=== PATIENT | male | born 1980 | race American Indian/Alaskan Native ===

== ENCOUNTER 2017-06-02 15:29 | Emergency (ER) | payer SELFPAY ==
[2017-06-02 16:49] LABS: Basophils % (Auto) 0.8 % (0.0-1.8); Eosinophils % (Auto) 0.7 % (0.0-4.3); Hemoglobin 15.1 gm/dl (11.8-15.2); Mean Corpuscular HGB Conc 34 % (32-34); Mean Corpuscular Hemoglobin 33 pg (28-32); Mean Corpuscular Volume 95 fl (84-94); Platelet Count 267 K/mm3 (140-440); Red Blood Count 4.63 M/mm3 (3.65-5.03); Red Cell Distribution Width 13.6 % (13.2-15.2); White Blood Count 7.6 K/mm3 (4.5-11.0)
[2017-06-02 17:04] LABS: Alanine Aminotransferase 16 units/L (7-56); Albumin 4.3 g/dL (3.9-5); Albumin/Globulin Ratio 1.7 %; Alkaline Phosphatase 58 units/L (35-129); Anion Gap 17 mmol/L; Blood Urea Nitrogen 12 mg/dL (9-20); Calcium 9.7 mg/dL (8.4-10.2); Carbon Dioxide 28 mmol/L (22-30); Chloride 97.7 mmol/L (98-107); Glucose 96 mg/dL (75-100); Lipase 19 units/L (13-60); Potassium 4.3 mmol/L (3.6-5.0); Sodium 138 mmol/L (137-145); Total Protein 6.8 g/dL (6.3-8.2)
[2017-06-02 17:57] LABS: Bilirubin,Urine NEG (Negative); Blood,Urine MOD (Negative); Ketones,Urine 20 mg/dL (Negative); Leukocyte Esterase,Urine MOD (Negative); Mucus,Urine 2+ /HPF; Nitrite,Urine NEG (Negative); Urobilinogen,Urine < 2.0 mg/dL (<2.0)
[2017-06-02] MEDS ORDERED: ZOFRAN ONE (18:38)
[2017-06-02] MEDS: ZOFRAN IV ONE (18:42)
[2017-06-02] MEDS ORDERED: ROCEPHIN 2,000 MG in NACL 0.9% 50 ML IV ONE (19:32)
--- NOTE | 2017-06-02 19:32 | Emergency Department Report ---
HPI - General Chief Complaint: Abdominal Pain Time Seen by Provider: 06/02/17 19:15 - HPI HPI: This is a 36-year-old -[place] male, who presents to the ED with abdominal pain, periumbilical 10/10 with nausea, vomiting. Patient states that he has had these symptoms on and off for the past 2 weeks, but seems worse today. Patient stated a history of chronic abdominal issues dating back years but he has not yet seen any outside physician for his symptoms. Patient complains of mild dysuria, mild urinary frequency but no hematuria. ED Past Medical Hx - Past Medical History Previous Medical History?: No - Surgical History Past Surgical History?: No - Family History Family history: hypertension - Social History Smoking Status: Current Every Day Smoker Substance Use Type: None - Medications Home Medications: Home Medications Medication Instructions Recorded Confirmed Last Taken Type Ciprofloxacin HCl [Ciprofloxacin 250 mg PO BID #14 tablet 06/02/17 Unknown Rx TAB] Ketorolac [Toradol] 10 mg PO Q6H PRN #14 tablet 06/02/17 Unknown Rx ED Review of Systems ROS: Stated complaint: STOMACH PAIN Other details as noted in HPI Comment: All other systems reviewed and negative Gastrointestinal: nausea Genitourinary: dysuria, frequency, hematuria Physical Exam - Physical Exam Vital Signs: Vital Signs 06/02/17 06/02/17 06/02/17 16:23 18:35 18:40 Temperature 98.2 F Pulse Rate 70 71 Respiratory 17 13 Rate Blood Pressure 123/81 131/84 Blood Pressure [Left] O2 Sat by Pulse 100 100 100 Oximetry 06/02/17 06/02/17 06/02/17 18:44 18:50 18:56 Temperature Pulse Rate 60 68 Respiratory 18 19 16 Rate Blood Pressure 123/84 Blood Pressure 131/84 [Left] O2 Sat by Pulse 99 98 99 Oximetry 06/02/17 06/02/17 19:00 19:10 Temperature Pulse Rate 93 H 66 Respiratory 17 10 L Rate Blood Pressure 131/92 131/92 Blood Pressure [Left] O2 Sat by Pulse 99 99 Oximetry Physical Exam: Gen. alert and oriented 3 in no distress Head atraumatic normocephalic Eyes PERR LA EOMI Chest regular rate and rhythm normal S1-S2 lungs clear bilaterally Abdomen soft nondistended, mild suprapubic tenderness. Back no point tenderness paravertebral tenderness Neuro no focal deficit. Psych normal mood. ED Course Vital Signs 06/02/17 06/02/17 06/02/17 16:23 18:35 18:40 Temperature 98.2 F Pulse Rate 70 71 Respiratory 17 13 Rate Blood Pressure 123/81 131/84 Blood Pressure [Left] O2 Sat by Pulse 100 100 100 Oximetry 06/02/17 06/02/17 06/02/17 18:44 18:50 18:56 Temperature Pulse Rate 60 68 Respiratory 18 19 16 Rate Blood Pressure 123/84 Blood Pressure 131/84 [Left] O2 Sat by Pulse 99 98 99 Oximetry 06/02/17 06/02/17 19:00 19:10 Temperature Pulse Rate 93 H 66 Respiratory 17 10 L Rate Blood Pressure 131/92 131/92 Blood Pressure [Left] O2 Sat by Pulse 99 99 Oximetry ED Medical Decision Making - Lab Data Result diagrams: 06/02/17 16:29 06/02/17 16:29 Critical care attestation.: If time is entered above; I have spent that time in minutes in the direct care of this critically ill patient, excluding procedure time. ED Disposition Clinical Impression: UTI (urinary tract infection) Disposition: DC-01 TO HOME OR SELFCARE Is pt being admited?: No Does the pt Need Aspirin: No Condition: Stable Prescriptions: Ciprofloxacin HCl [Ciprofloxacin TAB] 250 mg PO BID #14 tablet Ketorolac [Toradol] 10 mg PO Q6H PRN #14 tablet PRN Reason: Pain Referrals: PRIMARY CARE, [Primary Care Provider] - 3-5 Days
[2017-06-02] MEDS: NACL 0.9% 1000 ML 1,000 ML IV ONE (19:40)
[2017-06-02] MEDS: BENTYL IM ONE (19:40)
[2017-06-02] MEDS: MORPHINE IV ONE (19:40)
[2017-06-02] MEDS ORDERED: NACL ONE (20:02)
[2017-06-02] MEDS: ROCEPHIN/NS 2 GM/100 ML 2 GM/100 ML BAG IV ONE (20:36)
--- NOTE | 2017-06-02 21:07 | Cat Scan Report ---
FINAL REPORT EXAM: CT ABDOMEN PELVIS W CON HISTORY: abd pain TECHNIQUE: CT of the abdomen and pelvis with IV contrast. Coronal and sagittal reconstructed imaging provided. PRIORS: None currently available. FINDINGS: ABDOMEN: Dilated intra and extrahepatic biliary ducts. Common bile duct measures 9.5 mm. Distinct lesion or stone is not clearly evident on the CT scan. Dorsal pancreatic duct is also dilated measuring 4 mm. A distinct pancreatic lesion is not clearly evident. There appears to be a prominent duct of [place] measuring 3.6 mm which connects with the common bile duct. The dilated dorsal duct of [place] appears to be the main duct which is dilated approximately 4 mm and empties separately into the duodenum. No CT evidence for pancreatitis. No peripancreatic fluid collection identified. Gallbladder is not distended. No distinct stones are present within the gallbladder. No obvious wall thickening. Liver, stomach, spleen, adrenals, and kidneys are unremarkable. IVC is intact. No abdominal aortic aneurysm or dissection. No periaortic or retroperitoneal mass or adenopathy. [id number] stool is present throughout the colon. No obvious wall thickening or inflammatory changes. Appendix is normal. Terminal ilium is unremarkable. Small bowel loops are unremarkable. No obstructive pattern. No free air. No free fluid. PELVIS: Distended bladder. No obvious wall thickening. No stone. No abnormal enhancing lesions. No pelvic mass or adenopathy. Inguinal regions are unremarkable. Bones: No suspicious osseous lesions on this limited examination of the skeleton. Metastatic disease better evaluated with bone scan. IMPRESSION: Dilated intra and extrahepatic biliary duct. A distinct stone or lesion is not clearly evident on CT scan. Pancreatic divisum with a main dilated pancreatic duct of Santorini and a mildly dilated ventral duct of [place]. Further evaluation with MRCP may be helpful if clinically indicated. No CT evidence for pancreatitis at this time.
[2017-06-02 22:09] VITALS: BP 109/57
== END 2017-06-02 22:10 | disposition home or self-care (01) ==
LOC: ED 15:29
DX: N39.0 Urinary tract infection, site not specified (principal); F17.200 Nicotine dependence, unspecified, uncomplicated
CPT/HCPCS: 36415; 74177; 80053; 81001; 83690; 85025; 96361; 96365; 96372; 96375; 99284; J0500; J0696; J2270; J2405; J7030; Q9967

== ENCOUNTER 2017-06-17 12:15 | Emergency (ER) | payer SELFPAY ==
[2017-06-17 13:54] LABS: Alanine Aminotransferase 9 units/L (7-56); Albumin 4.3 g/dL (3.9-5); Albumin/Globulin Ratio 1.2 %; Alkaline Phosphatase 48 units/L (35-129); Anion Gap 17 mmol/L; BUN/Creatinine Ratio 16.36; Basophils % (Auto) 0.9 % (0.0-1.8); Blood Urea Nitrogen 18 mg/dL (9-20); Calcium 9.9 mg/dL (8.4-10.2); Carbon Dioxide 24 mmol/L (22-30); Chloride 102.1 mmol/L (98-107); Glucose 91 mg/dL (75-100); Hematocrit 40.4 % (35.5-45.6); Hemoglobin 13.9 gm/dl (11.8-15.2); Lipase 24 units/L (13-60); Mean Corpuscular HGB Conc 34 % (32-34); Mean Corpuscular Hemoglobin 32 pg (28-32); Mean Corpuscular Volume 93 fl (84-94); Platelet Count 247 K/mm3 (140-440); Potassium 3.9 mmol/L (3.6-5.0); Red Blood Count 4.35 M/mm3 (3.65-5.03); Red Cell Distribution Width 13.9 % (13.2-15.2); Sodium 139 mmol/L (137-145); Total Protein 7.9 g/dL (6.3-8.2)
[2017-06-17 14:23] LABS: Bacteria,Urine 1+ /HPF (Negative); Bilirubin,Urine NEG (Negative); Blood,Urine SM (Negative); Ketones,Urine NEG (Negative); Leukocyte Esterase,Urine LG (Negative); Nitrite,Urine NEG (Negative); Urobilinogen,Urine < 2.0 mg/dL (<2.0)
[2017-06-17] MEDS ORDERED: PERCOCET 5/325 PO ONE (17:39)
[2017-06-17] MEDS ORDERED: NACL 0.9% 1000 ML 1,000 ML IV ONE (17:41)
[2017-06-17] MEDS ORDERED: LEVAQUIN 750MG/150ML 750 MG/150 ML BAG IV ONE (17:41)
--- NOTE | 2017-06-17 19:10 | Cat Scan Report ---
FINAL REPORT EXAM: CT ABDOMEN PELVIS WO CON HISTORY: abdominal pain and UTI with h/o kidney stones TECHNIQUE: Unenhanced stone protocol CT of the abdomen and pelvis at 2.5 millimeter axial increments. Coronal and sagittal reconstruction was also performed. PRIORS: CT a/P 06/02/2017 FINDINGS: There is a percutaneous pigtail catheter present in the lower pole of the left kidney. No definite fluid collection is seen in the region of the pigtail terminus. No surrounding inflammation is seen. Numerous bilateral nonobstructing renal calculi are present. These are increased in number compared to previous exam. No evidence for hydronephrosis is seen. There is a new ovoid 8 x 9 x 13 mm calcification along the left pelvic sidewall, however, I cannot confirm this in the distal left ureter. Otherwise, within the limits of a noncontrast exam, the liver, spleen, pancreas, gallbladder, and adrenal glands are unremarkable. No evidence for retroperitoneal or pelvic lymphadenopathy is seen. The bowel loops have normal caliber. No fluid collection, inflammatory change, or free air is seen within the abdomen or pelvis. The appendix is normal. Into the right pelvis. Within the pelvis, the prostate is normal. Images through the upper abdomen include the lung bases which are expanded and clear. Bony structures show no focal abnormalities. IMPRESSION: 1. No definite acute abnormality. A pigtail catheter is in place in the lower pole left kidney with no evidence for abscess. 2. New ovoid calcification in the left pelvis but I cannot confirm this full CT in the distal left ureter. No evidence for renal obstruction is seen on the left. 3. Numerous bilateral nonobstructing renal calculi, increased in number from prior.
[2017-06-17 19:19] VITALS: BP 132/83
--- NOTE | 2017-06-17 20:32 | Emergency Department Report ---
Entered by ALANA SPEARS, acting as scribe for KARIS VERAS PA. ED Abdominal Pain HPI - General Chief Complaint: Abdominal Pain Stated Complaint: LEFT KIDNEY PAIN Time Seen by Provider: 06/17/17 17:33 Source: patient, family Mode of arrival: Carried (Peds) Limitations: No Limitations - History of Present Illness Initial Comments: 36 y/o male presents to the ED c/o abdominal pain x a few days. Denies fever, chills, nausea, vomiting, diarrhea, dysuria, frequency and urgency. Patient was seen at [place] for left kidney failure and he has an appointment with PCP on 06/20 and with urologist on 06/27/17. Pain is described as 7/10 on a severity scale. Denies taking any OTC meds. No alleviating or aggravating factors. NKDA. He reports that he is here because he wants some pain medication. He has kidney stones. MD Complaint: abdominal pain Onset/Timin -: days(s) Location: suprapubic (pelvic area) Radiation: none Migration to: no migration Severity: moderate Severity scale (0 -10): 7 Quality: aching Consistency: constant Improves With: nothing Worsens With: nothing Context: other (kidney stones) Associated Symptoms: denies: nausea, vomiting, diarrhea, fever, chills, dysuria , hematemesis, hematochezia, melena, hematuria, anorexia, syncope, other ( frequency, urgency) Treatments Prior to Arrival: other (tramadol) - Related Data Previous Rx's Medication Instructions Recorded Last Taken Type Ciprofloxacin HCl [Ciprofloxacin 250 mg PO BID #14 tablet 06/02/17 Unknown Rx TAB] Ketorolac [Toradol] 10 mg PO Q6H PRN #14 tablet 06/02/17 Unknown Rx HYDROcodone/APAP 5-325 [[place] 1 each PO Q6HR PRN #16 tablet 06/17/17 Unknown Rx 5/325] Levofloxacin [Levaquin] 750 mg PO QDAY #10 tablet 06/17/17 Unknown Rx Ondansetron [Zofran Odt] 4 mg PO Q8HR PRN #15 tab.rapdis 06/17/17 Unknown Rx Allergies Allergy/AdvReac Type Severity Reaction Status Date / Time No Known Allergies Allergy Verified 06/02/17 19:24 ED Review of Systems Comment: All other systems reviewed and negative Constitutional: no symptoms reported. denies: chills, fever ENT: denies: ear pain, throat pain, dental pain, hearing loss, congestion Respiratory: no symptoms reported Cardiovascular: denies: chest pain, palpitations, edema, syncope Endocrine: denies: excessive sweating, flushing, increased hunger, increased thirst, increased urine, unexplained weight gain, unexplained weight loss Gastrointestinal: abdominal pain. denies: nausea, vomiting, diarrhea, constipation, hematemesis, melena, hematochezia Genitourinary: denies: urgency, dysuria, frequency, hematuria, discharge, testicular pain, testicular mass Musculoskeletal: denies: back pain, arthralgia, myalgia Skin: denies: rash Neurological: denies: headache, weakness, numbness, paresthesias, confusion, abnormal gait, vertigo ED Past Medical Hx - Past Medical History Previous Medical History?: Yes Hx Renal Disease: Yes Hx Asthma: Yes - Surgical History Past Surgical History?: Yes Additional Surgical History: Abdominal - Family History Family history: hypertension - Social History Smoking Status: Current Every Day Smoker Substance Use Type: None - Medications Home Medications: Home Medications Medication Instructions Recorded Confirmed Last Taken Type Ciprofloxacin HCl [Ciprofloxacin 250 mg PO BID #14 tablet 06/02/17 Unknown Rx TAB] Ketorolac [Toradol] 10 mg PO Q6H PRN #14 tablet 06/02/17 Unknown Rx HYDROcodone/APAP 5-325 [[place] 1 each PO Q6HR PRN #16 tablet 06/17/17 Unknown Rx 5/325] Levofloxacin [Levaquin] 750 mg PO QDAY #10 tablet 06/17/17 Unknown Rx Ondansetron [Zofran Odt] 4 mg PO Q8HR PRN #15 tab.rapdis 06/17/17 Unknown Rx ED Physical Exam - General Limitations: No Limitations General appearance: alert, in no apparent distress - Head Head exam: Present: atraumatic, normocephalic, normal inspection - Eye Eye exam: Present: normal appearance, PERRL, EOMI. Absent: scleral icterus, conjunctival injection, nystagmus, periorbital swelling, periorbital tenderness Pupils: Present: normal accommodation - ENT ENT exam: Present: normal exam, normal orophraynx, mucous membranes moist, TM's normal bilaterally, normal external ear exam - Neck Neck exam: Present: normal inspection, full ROM, other (supple). Absent: tenderness, meningismus, lymphadenopathy, thyromegaly - Respiratory Respiratory exam: Present: normal lung sounds bilaterally. Absent: respiratory distress, wheezes, rales, rhonchi, stridor, chest wall tenderness, accessory muscle use, decreased breath sounds, prolonged expiratory - Cardiovascular Cardiovascular Exam: Present: regular rate, normal rhythm, normal heart sounds. Absent: bradycardia, tachycardia, irregular rhythm, systolic murmur, diastolic murmur, rubs, gallop - GI/Abdominal GI/Abdominal exam: Present: soft, normal bowel sounds. Absent: distended, tenderness, guarding, rebound, rigid, mass, bruit - External exam: Present: other - Extremities Exam Extremities exam: Present: normal inspection, full ROM, normal capillary refill , other (no clubbing, cyanosis or edema). Absent: tenderness, pedal edema, joint swelling, calf tenderness - Back Exam Back exam: Present: normal inspection, full ROM. Absent: tenderness, CVA tenderness (R), CVA tenderness (L), muscle spasm, paraspinal tenderness, vertebral tenderness, rash noted - Neurological Exam Neurological exam: Present: alert, oriented X3 - Psychiatric Psychiatric exam: Present: normal affect, normal mood - Skin Skin exam: Present: warm, dry, intact, normal color. Absent: rash ED Course Vital Signs 06/17/17 06/17/17 06/17/17 12:41 17:15 19:06 Temperature 98.9 F 97.7 F 98.3 F Pulse Rate 85 67 72 Respiratory 18 18 20 Rate Blood Pressure 114/87 Blood Pressure 147/102 132/83 [Right] O2 Sat by Pulse 100 99 96 Oximetry - Reevaluation(s) Reevaluation #1: 06/17/17 20:03 Given Levaquin 750 mg IV for urinary tract infection and urine culture sent. He was given Percocet 5/325 2 tablets emergency room for abdominal pain. A sling given normal saline 1 L in emergency room. 06/17/17 20:03 ED Medical Decision Making - Lab Data Result diagrams: 06/17/17 13:16 06/17/17 13:16 Lab Results 06/17/17 06/17/17 06/17/17 Range/Units 13:16 13:16 13:18 WBC 7.0 (4.5-11.0) K/mm3 RBC 4.35 (3.65-5.03) M/mm3 Hgb 13.9 (11.8-15.2) gm/dl Hct 40.4 (35.5-45.6) % MCV 93 (84-94) fl MCH 32 (28-32) pg MCHC 34 (32-34) % RDW 13.9 (13.2-15.2) % Plt Count 247 (140-440) K/mm3 Lymph % (Auto) 31.1 (13.4-35.0) % Sabine % (Auto) 6.5 (0.0-7.3) % Eos % (Auto) 2.0 (0.0-4.3) % Baso % (Auto) 0.9 (0.0-1.8) % Lymph # 2.2 (1.2-5.4) K/mm3 Sabine # 0.5 (0.0-0.8) K/mm3 Eos # 0.1 (0.0-0.4) K/mm3 Baso # 0.1 (0.0-0.1) K/mm3 Seg Neutrophils % 59.5 (40.0-70.0) % Seg Neutrophils # 4.2 (1.8-7.7) K/mm3 Sodium 139 (137-145) mmol/L Potassium 3.9 (3.6-5.0) mmol/L Chloride 102.1 (98-107) mmol/L Carbon Dioxide 24 (22-30) mmol/L Anion Gap 17 mmol/L BUN 18 (9-20) mg/dL Creatinine 1.1 (0.8-1.5) mg/dL Estimated GFR > 60 ml/min BUN/Creatinine Ratio 16.36 % Glucose 91 (75-100) mg/dL Calcium 9.9 (8.4-10.2) mg/dL Total Bilirubin 0.60 (0.1-1.2) mg/dL AST 16 (5-40) units/L ALT 9 (7-56) units/L Alkaline Phosphatase 48 (35-129) units/L Total Protein 7.9 (6.3-8.2) g/dL Albumin 4.3 (3.9-5) g/dL Albumin/Globulin Ratio 1.2 % Lipase 24 (13-60) units/L Urine Color Yellow (Yellow) Urine Turbidity Clear (Clear) Urine pH 6.0 (5.0-7.0) Ur Specific Cochrane 1.012 (1.003-1.030) Urine Protein 100 mg/dl (Negative) mg/dL Urine Glucose (UA) Neg (Negative) mg/dL Urine Ketones Neg (Negative) mg/dL Urine Blood Sm (Negative) Urine Nitrite Neg (Negative) Urine Bilirubin Neg (Negative) Urine Urobilinogen < 2.0 (<2.0) mg/dL Ur Leukocyte Esterase Lg (Negative) Urine WBC (Auto) 107.0 H (0.0-6.0) /HPF Urine RBC (Auto) 10.0 (0.0-6.0) /HPF U Epithel Cells (Auto) < 1.0 (0-13.0) /HPF Urine Bacteria (Auto) 1+ (Negative) /HPF Urine culture pending - Radiology Data Radiology results: report reviewed CT scan of the abdomen and pelvis without IV contrast shows no definite acute abnormality. A pigtail catheter is in place and lower pole left kidney with no evidence for abscess.Calcification in the left pelvis but I cannot confirm this. CT in the distal left ureter. No evidence for renal obstruction is seen on the left. Numerous bilateral none obstructing renal calculi, increase in number from prior. No evidence for hydronephrosis seen. The liver, spleen, pancreas, gallbladder and adrenal glands are unremarkable. No evidence of retroperitoneal or pelvic lymphadenopathy. The bowel loops have normal caliber. No fluid collection. No inflammatory change or free air seen within the abdomen or pelvis. The appendix is normal. - Medical Decision Making ED course: Here report that he has pain in his pelvic area. Denies any flank pain. Denies any fever or chills. Patient has a left nephrostomy tube in place and has history of kidney stones. Was seen at [place] recently and was given an appointment for follow-up with [place] urology on 06/20/2017 and with [place] primary care and I'll do 20 07/19/2017. CBC and CMP within normal limits. No signs of renal failure patient had no CVA tenderness. His urinalysis is with large amount of white blood cell, large leukocyte esterase and trace blood and positive protein at 100 otherwise stable. Urine culture sent off. Patient was given Levaquin 750 mg IV and 1 L of normal saline IV. He was given 5/325 2 tablets by mouth for pain which relieved this pain. CT findings positive for kidney stones bilaterally without any obstruction or hydronephrosis. CT scan report is fair more stones seen when compared to previous report. Patient was here for abdominal pain on 06/02/2017 and was seen and had a urinary tract infection and was sent home on ciprofloxacin. Urinary tract infection today is worse than 06/02/2017. 06/02/2017 patient had 30 protein in his urine today he has 100. Scheduled to see his urologist in 3 days at [place]. I discussed with him lab results and CT scan results and treatment plan the patient. Pt will be placed on Levaquin since ciprofloxacin did not help his UTI, [place] and Zofran and to follow up in 3 days at [place] u[facility] as scheduled. Diagnostic/labs: GC and CMP is stable versus reveal large amount of leukocyte Estrace, greater than 100 white blood cell, small blood and positive protein otherwise stable. Urine culture sent and pending. The radiology section for CT scan which shows patient with bilateral kidney stones without any hydronephrosis or obstruction. Assessment/plan 1. Pelvic pain 2. Personal history of left nephrostomy tube 3. Acute cystitis with hematuria which is worsening since age 04/20/2017 4. Bilateral kidney stones, nonobstructive without hydronephrosis 5. Proteinuria Patient will be following up with his urologist at [place] on 06/20 2017. He is given prescription for Levaquin, [place] and Zofran. Discussed with him and pain worsened and not better with [place] he needs to return to the emergency room. ED Disposition Clinical Impression: Nephrostomy status, Bilateral kidney stones, Pelvic pain in male, Acute cystitis with hematuria Proteinuria Qualifiers: Proteinuria type: unspecified Qualified Code(s): R80.9 - Proteinuria, unspecified Disposition: TO HOME OR SELFCARE Is pt being admited?: No Does the pt Need Aspirin: No Condition: Stable Instructions: Renal Colic (ED), Kidney Stones (ED), Urinary Tract Infection in Men (ED), Nephrostomy Tube Care (ED) Additional Instructions: These increased her fluid intake to 3 L of water per day Please do not drive or operate heavy machinery while on [place] as this medication will cause drowsiness Take Levaquin for urinary tract infection. Please keep your visit with your urologist at [place] for If you develop increasing pain, nausea and vomiting that is not relieved by medication please return to the emergency room See discharge instruction on nephrostomy tube care You have Protein urine that has increased since 06/02/2017 and this could be because of urinary infection but he will need follow-up for your urologist and also a kidney doctor for management and monitoring Prescriptions: HYDROcodone/APAP 5-325 [[place] 5/325] 1 each PO Q6HR PRN #16 tablet PRN Reason: Pain Levofloxacin [Levaquin] 750 mg PO QDAY #10 tablet Ondansetron [Zofran Odt] 4 mg PO Q8HR PRN #15 tab.rapdis PRN Reason: Nausea And Vomiting Referrals: [facility] [Outside] - 06/20/17 MARTIN BRUNER MD [Staff Physician] - 06/19/17 Forms: Work/School Release Form(ED) This documentation as recorded by the TORY montes ELIZABETH,accurately reflects the service I personally performed and the decisions made by ,KARIS VERAS PA.
== END 2017-06-17 20:44 | disposition home or self-care (01) ==
LOC: ED 12:15
DX: N20.0 Calculus of kidney (principal); R10.2 Pelvic and perineal pain; N30.01 Acute cystitis with hematuria; R80.9 Proteinuria, unspecified; J45.909 Unspecified asthma, uncomplicated
CPT/HCPCS: 36415; 74176; 80053; 81001; 83690; 85025; 87086; 96365; 99284; J1956; J7030